=== PATIENT | female | born 1970 | race African-American/Black ===

== ENCOUNTER 2017-04-20 12:32 | Emergency (ER) | payer OTHER ==
[~2017-04-20] VITALS: Ht 170.2 cm; Wt 84.8 kg
[2017-04-20] MEDS ORDERED: XOPENEX0.63 MG/3 HHN (12:58)
[2017-04-20] MEDS ORDERED: PROMETHAZINE-C118 M1 ORAL (13:24)
[2017-04-20] MEDS ORDERED: PREDNISONE20 MG ORAL (13:24)
[2017-04-20] MEDS ORDERED: ADVAIR 250/501 PUFFS INH (13:24)
[2017-04-20 13:27] VITALS: BP 143/97
[2017-04-20 13:29] VITALS: BP 143/97
--- NOTE | 2017-04-20 23:04 | Emergency Room Report ---
History of Present Illness General Chief Complaint: Upper Respiratory Illness Source: Patient Present Illness HPI The patient is a 46-year-old female presenting for one week of cough, wheezing. She admits to a history of asthma and states that she uses albuterol which has been helping but the symptoms returned. She denies fever. She denies any known sick contacts or recent travel. She denies other symptoms including chest pain, hemoptysis, sore throat, headache, myalgia Allergies: Coded Allergies: No Known Allergies (Unverified , 04/20/17) Patient History Past Medical History: see triage record Pertinent Family History: none Last Menstrual Period: 03/24/17. Now: No Reviewed Nursing Documentation: PMH: Agreed, PSxH: Agreed Nursing Documentation-PMH Past Medical History: No History, Except For Hx Asthma: Yes Review of Systems All Other Systems: negative except mentioned in HPI Physical Exam Vital Signs Date Time Temp Pulse Resp B/P (MAP) Pulse Ox O2 Delivery O2 Flow Rate FiO2 04/20/17 12:54 98.2 91 18 143/97 100 Room Air Sp02 EP Interpretation: reviewed, normal General Appearance: no apparent distress, alert, GCS 15, non-toxic Head: normocephalic, atraumatic Eyes: bilateral eye normal inspection, bilateral eye PERRL ENT: hearing grossly normal, normal pharynx, no angioedema, normal voice, uvula midline Neck: full range of motion, supple/symm/no masses Respiratory: chest non-tender, no accessory muscle use, wheezing - bilat Cardiovascular #1: regular rate, rhythm, no edema Musculoskeletal: back normal, gait/station normal, normal range of motion, non- tender Neurologic: alert, oriented x3, responsive, motor strength/tone normal, sensory intact, speech normal Psychiatric: judgement/insight normal, memory normal, mood/affect normal, no suicidal/homicidal ideation Skin: normal color, no rash, warm/dry, well hydrated Lymphatic: no adenopathy Medical Decision Making PA Attestation Dr. Hansen is my supervising physician. Patient management was discussed with my supervising physician Diagnostic Impression: Primary Impression: Asthma exacerbation Qualified Codes: J45.21 - Mild intermittent asthma with (acute) exacerbation ER Course The patient is a 46-year-old female presenting for one week of cough, wheezing. Differential diagnoses considered but not limited to: Asthma exacerbation, bronchitis, pneumonia, anxiety Physical exam: Vitals within normal limits. No apparent distress HEENT exam is unremarkable Lungs: Decreased breath sounds bilaterally with wheezing. Chest is nontender. No respiratory distress. No accessory muscle use. Patient is discharged home with a prescription for albuterol, prednisone, and advair and will followup with PMD. ER precautions are given Last Vital Signs Date Time Temp Pulse Resp B/P (MAP) Pulse Ox O2 Delivery O2 Flow Rate FiO2 04/20/17 13:29 98.2 18 143/97 100 Room Air 04/20/17 13:27 91 Status: improved Disposition: HOME, SELF-CARE Condition: Improved Scripts Codeine/Promethazine Hcl* (PROMETHAZINE-CODEINE SYRUP*) 118 Ml Syrup 5 ML ORAL Q6H Y for For Cough, #118 ML 0 Refills Prov: LINDA [email or web address] 04/20/17 Prednisone* (PREDNISONE*) 20 Mg Tablet 20 MG ORAL DAILY, #4 TAB 0 Refills Prov: LINDA TRACY.ALedy 04/20/17 Fluticasone/Salmeterol (Advair 250-50 Diskus) 1 Each Blst.w.dev 1 PUFF INH EVERY 12 HOURS, #1 EA Prov: LINDA TRACY.A. 04/20/17 Referrals: NON PHYSICIAN (PCP) Patient Instructions: Asthma, Adult Additional Instructions: I discussed my findings with the patient. All questions and concerns have been answered. Treatment and medication compliance have been addressed. I advised the patient that they need to follow up with PMD in 3-5 days. Return to ED if symptoms worsen, new symptoms arise, or if needed for any reason. Patient verbalized understanding of discharge instructions. LINDA TRACY Apr 20, 2017 23:04
== END 2017-04-20 13:29 | disposition home or self-care (01) ==
LOC: EMR 13:25
DX: J45.901 Unspecified asthma with (acute) exacerbation (principal)
CPT/HCPCS: 99283

== ENCOUNTER 2017-05-19 18:46 | Emergency (ER) | payer OTHER ==
[~2017-05-19] VITALS: Ht 167.6 cm; Wt 89.4 kg
[~2017-05-19 18:46] MED LIST: ADVAIR 250/501 PUFFS INH; PREDNISONE20 MG ORAL; PROMETHAZINE-C118 M1 ORAL; XOPENEX0.63 MG/3 HHN
[2017-05-19 19:10] VITALS: BP 135/99
--- NOTE | 2017-05-19 19:17 | Emergency Room Report ---
History of Present Illness General Chief Complaint: Flu Like Symptoms Source: Patient Present Illness HPI Patient with URI sy and muscle aches. Seen here 2 weeks ago and treated with steroids and cough syrup. Slightly better but now with 2 days of worsened cough , sore throat, muscle aches, wheezing. She has inhalers and breathing machine at home. Off of steroids at this time. No flu shot. No NVD. No dysuria. Pain in her chest with coughing 8/10, pleuritic and anterior chest without radiation. H/O asthma No rashes, headache. Allergies: Coded Allergies: No Known Allergies (Unverified , 04/20/17) Patient History Past Medical History: see triage record Social History: Denies: smoking Social History Narrative from home Last Menstrual Period: now Reviewed Nursing Documentation: PMH: Agreed, PSxH: Agreed Nursing Documentation-PMH Past Medical History: No History, Except For Hx Asthma: Yes Review of Systems All Other Systems: negative except mentioned in HPI Physical Exam Vital Signs Date Time Temp Pulse Resp B/P (MAP) Pulse Ox O2 Delivery O2 Flow Rate FiO2 05/19/17 19:00 98.1 103 20 135/99 100 Room Air Sp02 EP Interpretation: reviewed, normal General Appearance: well appearing, no apparent distress Head: normocephalic, atraumatic Eyes: bilateral eye normal inspection, bilateral eye PERRL ENT: hearing grossly normal, normal voice Neck: full range of motion, supple Respiratory: no respiratory distress, speaking full sentences, wheezing, expiration Cardiovascular #1: regular rate, rhythm Gastrointestinal: normal inspection Musculoskeletal: back normal, digits/nails normal, gait/station normal, normal range of motion, no calf tenderness Neurologic: alert, normal gait, grossly normal Psychiatric: mood/affect normal Skin: no rash Medical Decision Making Diagnostic Impression: Primary Impression: Influenza Additional Impression: Bronchospasm ER Course Patient presents with URI sy and wheezing. Was treated with steroids and cough syrup. Has machine at home. DDx: influenza, PNA (doubt by exam and VS), bronchitis, asthma amongst others. Offered breathing treatment. Patient declines breathing treatments in ED. Just wants to get Rx for tamiflu, Will also give steroids - Q sandra. No indication for CXR at this time. Patient stable for outpatient observation and treatment. Last Vital Signs Date Time Temp Pulse Resp B/P (MAP) Pulse Ox O2 Delivery O2 Flow Rate FiO2 05/19/17 19:28 98.1 99 20 135/99 100 Room Air Status: improved Disposition: HOME, SELF-CARE Condition: Improved Scripts Beclomethasone Dipropionate 40MCG Oral Inh (QVAR 40*) 7.3 Gm Aer.w.adap 2 PUFFS INH TWICE A DAY, #1 GM 0 Refills Prov: Brent Zuleta M.D. 05/19/17 Guaifenesin/Codeine Phos* (ROBITUSSIN AC*) 118 Ml Liquid 5 ML ORAL Q6H Y for For Cough, #118 ML 0 Refills Prov: Brent Zuleta M.D. 05/19/17 Oseltamivir Phosphate (Tamiflu) 75 Mg Capsule 75 MG ORAL TWICE A DAY, #10 CAP Prov: Brent Zuleta M.D. 05/19/17 Brent Zuleta M.D. May 19, 2017 19:17
[2017-05-19] MEDS ORDERED: TAMIFLU75 MG ORAL (19:20)
[2017-05-19] MEDS ORDERED: QVAR7.3 GM INH (19:20)
[2017-05-19] MEDS ORDERED: GUAIFENESIN-CO118 M1 ORAL (19:20)
== END 2017-05-19 19:38 | disposition home or self-care (01) ==
LOC: EMR 19:15
DX: J11.1 Influenza due to unidentified influenza virus with other respiratory manifestations (principal); J45.909 Unspecified asthma, uncomplicated
CPT/HCPCS: 99283